=== PATIENT | male | born 1960 | race Caucasian/White ===

== ENCOUNTER 2022-11-15 07:00 | Outpatient (CLI) | payer BC ==
--- NOTE | 2022-11-15 10:25 | XRAY Report ---
PROCEDURE: Knee 4 View LT INDICATIONS: LEFT KNEE INTERNAL DERANGEMENT TECHNIQUE: 4 views of the left knee(s) were acquired. COMPARISON: None. FINDINGS: Bones: No fractures or dislocations. Mild to moderate tricompartmental osteoarthritis is seen more n otably in medial femoral tibial compartment. No suspicious bony lesions. Soft tissues: Moderate knee joint effusion. No suspicious soft tissue calcifications or masses. IMPRESSION: No acute bony abnormality. Mild to moderate tricompartmental osteoarthritis more notably in medial fe moral tibial compartment. Moderate joint effusion. Reviewed by: Ramses Barnes MD on 11/15/2022 10:23 AM PDT Approved by: Ramses Barnes MD on 11/15/2022 10:23 AM PDT Station ID: [id number]
== END 2022-11-15 23:59 | disposition home or self-care (01) ==
LOC: DI.S 07:00
PROVIDERS: ATTEND Physician Assistant
DX: M17.12 Unilateral primary osteoarthritis, left knee (principal); M25.462 Effusion, left knee